=== PATIENT | female | born 1935 | race Caucasian/White ===

== ENCOUNTER 2016-10-29 14:56 | Inpatient (IN) | payer OTHER ==
[~2016-10-29] VITALS: Ht 160 cm; Wt 64.4 kg
[~2016-10-29 14:56] MED LIST: BENTYL 10 MG CA10 MG PO; BENTYL20 MG PO; CYMBALTA60 MG PO; LISINOPRIL10 MG PO; LOPRESSOR 25MG25 MG PO; MECLIZINE HCL25 M1 PO; NEXIUM40 MG PO; PERCOCET 325 MG1 TA2 PO
--- NOTE | 2016-10-29 15:17 | ED DYSPNEA/ASTHMA COMPLAINT ---
History of Present Illness General Chief Complaint: Dyspnea (COPD, CHF, Other) Stated Complaint: DIFF BREATHING, COUGH Source: patient Exam Limitations: no limitations Vital Signs & Intake/Output Vital Signs & Intake/Output Vital Signs Date Time Temp Pulse Resp B/P Pulse O2 O2 Flow FiO2 Ox Delivery Rate 11/01 1600 94 Room Air / 1412 98.8 100 20 122/70 90 Room Air / 0929 170/85 / 0800 Room Air / 0637 97.9 92 20 150/80 03/06 0000 93 Room Air 03/ 2153 98.4 90 20 122/70 93 ED Intake and Output 11/01 0000 10/31 1200 Intake Total 1999 920 Output Total Balance 1999 920 Intake, IV 600 800 Intake, Oral 1400 120 Number 1 Bowel Movements Allergies Coded Allergies: Sulfa (Sulfonamide Antibiotics) (GI UPSET 12/09/15) aspirin (CONTRAINDICATED D/T ULCERS 12/09/15) Reconcile Medications Azithromycin 250 MG TABLET 250 MG PO DAILY INFECTION Duloxetine HCl 20 MG CAPSULE.DR 1 CAP PO BID FIBROMYALGIA (Reported) Losartan Potassium 25 MG TABLET 1 TAB PO DAILY BP (Reported) Meclizine HCl 25 MG TABLET 1 TAB PO TID PRN VERTIGO (Reported) Mirtazapine 7.5 MG TABLET 1 TAB PO QPM SLEEP (Reported) Multivitamin (Multi-Day Vitamins) 1 EACH TABLET 1 TAB PO DAILY SUPPLEMENT ( Reported) Omeprazole 20 MG CAPSULE.DR 40 MG PO DAILY AC ACID REFLUX Polyethylene Glycol 3350 (Miralax) 17 GRAM/DOSE POWDER 17 GM PO DAILY CONSTIPATION Triage Nurses Notes Reviewed? yes Onset: Gradual Duration: day(s): (9) Timing: recent history Severity: moderate Activities at Onset: none Associated Symptoms: cough, fever, loss of appetite, weakness HPI: This is an 81-year-old female with history of hypertension, fibromyalgia, chronic kidney disease who presents to the ER from Dolly Soriano DO's office for chief complaint of fever of 101 in the office. Patient complains of nonproductive cough, weakness and shortness of breath. She status force a course of Levaquin and ended yesterday for pneumonia that was diagnosed by a walk-in clinic last week. She states that she had very diminished oral appetite and intake. Fleeting episodes of central chest pain, none now. Denies any productive cough. She states temperature fluctuates between going high and low. Positive sweats. Past History Travel History Traveled to [place] past 21 day No Medical History Any Pertinent Medical History? 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 No Review of Systems Review of Systems Constitutional: Reports: chills, diaphoresis, fever. EENTM: Reports: no symptoms. Respiratory: Reports: hemoptysis, short of breath. Denies: sputum production. Cardiovascular: Reports: chest pain. Denies: palpitations. GI: Denies: abdominal pain. Genitourinary: Reports: no symptoms. Musculoskeletal: Reports: no symptoms. Skin: Reports: no symptoms. Neurological/Psychological: Reports: no symptoms. Hematologic/Endocrine: Denies: bruising, bleeding, polyuria, polydipsia. Immunologic/Allergic: Denies: splenectomy. All Other Systems: Reviewed and Negative Physical Exam Physical Exam General Appearance: alert, awake, mild distress, thin Head: atraumatic, normal appearance Eyes: Bilateral: normal appearance, PERRL, EOMI. Ears, Nose, Throat: normal pharynx, normal ENT inspection Neck: normal inspection, supple, full range of motion Respiratory: accessory muscle use Cardiovascular: regular rate/rhythm Peripheral Pulses: 2+ radial (R), 2+ radial (L) Gastrointestinal: normal bowel sounds, soft, non-tender Extremities: normal inspection, normal capillary refill, normal range of motion, no edema Neurologic/Psych: no motor/sensory deficits, awake, alert, oriented x 3 Skin: intact, normal color, warm/dry Core Measures ACS in differential dx? No Severe Sepsis Present: No Septic Shock Present: No Progress Differential Diagnosis: pneumonia, FAILURE OF OUTPATIENT ORAL ANTIBIOTIC TREATMENT, RAPHAEL, ELECTROLYTE DISTURBANCE, DEHYDRATION Plan of Care: Orders Procedure Date/time Status Change service to 11/01 0756 Active Discharge Patient 11/01 UNK Active Laboratory Tests 11/01/16 0645: Anion Gap 8, Estimated GFR 53 L, BUN/Creatinine Ratio 16.0, Magnesium 1.7, CBC w Diff NO MAN DIFF REQ, RBC 3.62 L, MCV 92.3, MCH 30.2, RDW 13.6, MPV 7.3 L, Gran % 67.1, Lymphocytes % 21.0, Monocytes % 9.7 H, Eosinophils % 1.3, Basophils % 0.9, Absolute Granulocytes 5.1, Absolute Lymphocytes 1.6, Absolute Monocytes 0.7 H, Absolute Eosinophils 0.1, Absolute Basophils 0.1, PUBS MCHC 32.7 L Diagnostic Imaging: Viewed by Me: Radiology Read. Discussed w/RAD: Radiology Read. CXR Impression: PATIENT: VALDO CHAMBERLAIN PRESENT AGE : 81 PATIENT ACCOUNT NO: [id number] : 36 LOCATION: [facility] ORDERING PHYSICIAN: KATI BHATIA MD SERVICE DATE: 10/29/16 EXAM TYPE: RAD - XRY -PORTABLE CHEST XRAY EXAMINATION: XR PORTABLE CHEST CLINICAL INFORMATION: Cough, fever COMPARISON: CT 03/09/2016 TECHNIQUE: Portable AP view of the chest was obtained. FINDINGS: Lung volumes are symmetric. There are mild streaky bibasilar opacities. The remainder of the lungs are clear. No evidence of pneumothorax, significant pleural effusion, or pulmonary edema. The cardiomediastinal contour is unremarkable. No acute osseous findings are seen. IMPRESSION: Mild streaky bibasilar opacities suggesting atelectasis; a component of superimposed consolidation is difficult to entirely exclude in the proper clinical setting. DICTATED BY: CALEB BERNARDO MD DATE/TIME DICTATED:10/29/161555 VIDEO PHOTOGRAPHER:VANGIE DATE/TIME TRANSCRIBED:10/29/161555 CONFIDENTIAL, DO NOT COPY WITHOUT APPROPRIATE AUTHORIZATION. <Electronically signed in Other Vendor System> SIGNED BY: CALEB BERNARDO MD 10/29/16 1602 Initial ED EKG: SINUS TACHY @111 Rhythm Strip: sinus tachycardia Departure Departure Time of Disposition: 164 Disposition: STILL A PATIENT Condition: Stable Clinical Impression Primary Impression: Pneumonia Secondary Impressions: Hypercalcemia Referrals: DOLLY SORIANO DO (PCP/Family) Departure Forms: Customer Survey General Discharge Information Prescriptions: Current Visit Scripts Omeprazole 40 MG PO DAILY AC #60 CAP Polyethylene Glycol 3350 (Miralax) 17 GM PO DAILY #30 POW Azithromycin 250 MG PO DAILY #1 TAB Admission Note Spoke With: ROB FERREIRA MD Documentation of Exam: Documentation of any treatments & extenuating circumstances including Concerns Regarding Discharge (functional status, medication knowledge or non-compliance, living conditions, etc.) that warrant an admission rather than observation: [IV ABX, IV FLUIDS, TRC/NEBS, MONITOR I/O, MONITOR ELECTROLYTES, F/U CULTURES, REPEAT CALCIUM] Critical Care Note Critical Care Note Critical Care Time: non-applicable
--- NOTE | 2016-10-29 15:23 | NUR ---
81 Y/O FEMALE SENT FROM DR SORIANO'S OFFICE FOR EVAL OF WORSENING PNEUMONIA. PT STATES SHE WAS ON ANTIBIOTICS FOR 5 DAYS, "I FEEL NO BETTER - MAYBE WORSE". PT REPORTS COUGH (UNABLE TO BRING UP PHLEGM), FEVERS, AND DECREASED APPETITE/PO INTAKE. PT STATES SHE HAD A BREATHING TX AT DOCTORS OFFICE BUT DOESNT THINK IT HELPED. SAT 93% RA. EKG COMPLETE. AFEBRILE.
--- NOTE | 2016-10-29 15:27 | NUR ---
IV EST. SRIRAM AT BEDSIDE FOR EVAL. PT PLACED ON 2L NASAL CANNULA AT THIS TIME, RA SATS 90%. SAY UP TO 94% ON 2L NC
[2016-10-29 15:42] LABS: ABSOLUTE BASOPHIL COUNT 0.1 /CUMM (0.0-0.2); ABSOLUTE EOSINOPHIL COUNT 0.1 /CUMM (0.0-0.7); ABSOLUTE GRANULOCYTE CT 7.8 /CUMM (1.4-6.5); BASOPHIL % 1.1 % (0.0-2.0); EOSINOPHIL % 1.1 % (0-5); HEMATOCRIT 37.5 % (37-47); MEAN CORPUSCULAR HGB 29.8 PG (27.0-31.0); MEAN CORPUSCULAR HGB CONC 32.5 G/DL (33.0-37.0); MEAN CORPUSCULAR VOLUME 91.6 FL (81.0-99.0); PLATELET COUNT 383 /CUMM (130-400); RBC DISTRIBUTION WIDTH 13.4 % (11.5-14.5); RED BLOOD CELL CT 4.09 /CUMM (4.20-5.40)
--- NOTE | 2016-10-29 15:55 | NUR ---
NORMSAL SALINE INFUSING AT 500ML/HR AT THIS TIME
--- NOTE | 2016-10-29 16:02 | RADIOLOGY REPORT ---
EXAMINATION: XR PORTABLE CHEST CLINICAL INFORMATION: Cough, fever COMPARISON: CT 03/09/2016 TECHNIQUE: Portable AP view of the chest was obtained. FINDINGS: Lung volumes are symmetric. There are mild streaky bibasilar opacities. The remainder of the lungs are clear. No evidence of pneumothorax, significant pleural effusion, or pulmonary edema. The cardiomediastinal contour is unremarkable. No acute osseous findings are seen. IMPRESSION: Mild streaky bibasilar opacities suggesting atelectasis; a component of superimposed consolidation is difficult to entirely exclude in the proper clinical setting.
--- NOTE | 2016-10-29 16:47 | NUR ---
PT MEDICATED WITH ROCEPHIN AND ZITHROMAX PER ORDER AT THIS TIME. HEART HEALTHY DINNER TRAY ORDERED FOR PT PER MD ITS OK.
--- NOTE | 2016-10-29 16:56 | NUR ---
PT MEDICATED WITH 40MEQ POTASSIUM PER ORDER AT THIS TIME.
--- NOTE | 2016-10-29 17:10 | NUR ---
PT C/O NAUSEA AT THIS TIME. AWARE.
--- NOTE | 2016-10-29 17:23 | NUR ---
IV REGLAN INFUSING PER ORDER AT THIS TIME.
--- NOTE | 2016-10-29 17:51 | NUR ---
HOUSE STAFF IN FOR EVAL
--- NOTE | 2016-10-29 18:33 | NUR ---
Emergency Dept [facility] Admit Note: To be admitted to [facility] by DR CARRANZA with PNEUMONIA as the diagnosis, to [facility] location. Nursing Early Years Teacher and admitting notified 10/29/16 at 1755 PT WILL GO TO ROOM [id number]
--- NOTE | 2016-10-29 18:58 | NUR ---
REPORT GIVEN TO FLOOR, DISTRIBTUION CALLED.
[2016-10-29] MEDS ORDERED: DEXILANT60 M1 PO (19:06)
[2016-10-29] MEDS ORDERED: LOSARTAN POTASS25 M1 PO (19:07)
[2016-10-29] MEDS ORDERED: MECLIZINE HCL25 MG PO (19:07)
[2016-10-29] MEDS ORDERED: DULOXETINE HCL20 MG PO (19:07)
[2016-10-29] MEDS ORDERED: MIRTAZAPINE7.5 M1 PO (19:08)
[2016-10-29] MEDS ORDERED: MULTI-DAY VITA1 EACH PO (19:09)
--- NOTE | 2016-10-29 19:25 | History & Physical ---
See Addendum General Information and HPI MD Statement: I have seen and personally examined VALDO QUIJANO and documented this H&P. The patient is a 81 year old F who presented with a patient stated chief complaint of [pneumonia that didn't respond to outpatient therapy]. Source of Information: patient, old records Exam Limitations: no limitations History of Present Illness: Ms. Quijano is a 81 year old female with chief complaint of cough, shortness of breath, fever. She has past medical history significant for hypertension, fibromyalgia, chronic kidney disease, multiple pulmonary nodules, bronchiectasis , GERD, large hiatal hernia refractory to surgical repair. Patient presented to ED with history of nonproductive cough, shortness of breath , fever at home Tmax 99, chills, night sweats and weakness that started on last 10/21/16, patient visited a walk-in clinic and was prescribed Levaquin, she used Levaquin for 5 days last dose was yesterday but didn't notice any change in her symptoms, patient visited her PCP Dr. Dolly Soriano and had a temperature of 101 and was sent to ED for evaluation. Patient has history of sick contact with her grandson, she visited her son in [place] last week and her grandson had "very bad cold", came to home on Tuesday and started to have her symptoms the next day. She didn't have flu vaccine this season and wasn't tested for flu when she was in urgent care last week. Her review of system significant for headache that was worked up but never had a definitive cause, but if agent started 2 weeks ago minimal, palpitation on and off, chest heaviness but denied chest pain, heartburn, chronic constipation. The patient is following with Dr. Alas and Dr. Swenson for multiple pulmonary nodules with annual CT, her last CT scan was 2015, she had an appointment with Dr. Alas yesterday but wasn't able to come because of her sickness. Patient has no history of smoking, no alcohol consumption, family history significant for heart problems, no history of cancer. She didn't take any of her medication today because she felt very weak. Allergies/Medications Allergies: Coded Allergies: Sulfa (Sulfonamide Antibiotics) (GI UPSET 12/09/15) aspirin (CONTRAINDICATED D/T ULCERS 12/09/15) Home Med list Dexlansoprazole (Dexilant) (Unknown Strength) BP (Unknown Dose) PO DAILY GI (Reported) Duloxetine HCl 20 MG CAPSULE. 1 CAP PO BID FIBROMYALGIA (Reported) Losartan Potassium 25 MG TABLET 1 TAB PO DAILY BP (Reported) Meclizine HCl 25 MG TABLET 1 TAB PO TID PRN VERTIGO (Reported) Mirtazapine 7.5 MG TABLET 1 TAB PO QPM SLEEP (Reported) Multivitamin (Multi-Day Vitamins) 1 EACH TABLET 1 TAB PO DAILY SUPPLEMENT ( Reported) Past History Travel History Traveled to [place] past 21 day No Medical History Neurological: vertigo, headache EENT: [place] Cardiovascular: hypertension Respiratory: BRONCHIECTASIS Gastrointestinal: GERD Renal: STAGE III KIDNEY DISEASE Musculoskeletal: CERVICAL SPONDLYOSIS KNEE PAIN, FIBROMYALGIA Psychiatric: ANXIETY/DEPRESSION Cancer(s): PULMONARY NODULES 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 Home Who Do You Live With? 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 Exam & Diagnostic Data Last 24 Hrs of Vital Signs/I&O Vital Signs Date Time Temp Pulse Resp B/P Pulse O2 O2 Flow FiO2 Ox Delivery Rate 10/29 2029 98.2 96 16 22/70 96 Nasal 2.0L Cannula 10/29 2018 Nasal 2.0L Cannula 10/29 1929 98.4 94 18 143/75 100 Nasal 2.0L Cannula 10/29 1856 96 Nasal 2.0L Cannula 10/29 1821 96.4 102 18 146/80 96 Nasal 2.0L Cannula 10/29 1610 90 Room Air 10/29 1520 96.3 110 18 188/86 93 Room Air Intake & Output 10/29 1600 10/29 0800 10/29 0000 Intake Total Output Total Balance Patient 64.41 kg Weight Physical Exam General Appearance Alert, Oriented X3, Cooperative, No Acute Distress Skin No Rashes, No Breakdown, No Significant Lesion HEENT Atraumatic, PERRLA, EOMI, Dry mucous membrane Neck Supple, No JVD Cardiovascular Regular Rate, Normal S1, Normal S2, No Murmurs, positive bowel sounds Lungs Clear to Auscultation, decrease air entery Abdomen Normal Bowel Sounds, Soft, No Tenderness Neurological Normal Speech, Strength at 5/5 X4 Ext, Normal Tone, Sensation Intact, Cranial Nerves 3-12 NL, Reflexes 2+ Extremities No Clubbing, No Cyanosis, No Edema, Normal Pulses Assessment/Plan Assessment: Ms. Quijano is a 81 year old female with past medical history significant for hypertension, fibromyalgia, chronic kidney disease, multiple pulmonary nodules, bronchiectasis, GERD, large hiatal hernia refractory to surgical repair. She presented to with chief complaint of cough, shortness of breath, fever. On admission Vital signs temperature 98.2, pulse 96, blood pressure 122/70, respirations 16 with saturation 96% on 2L Lab H&H 12.2/37.5, WBC 11, sodium 142, potassium 3.4, BUN/creatinine 27/1.6, calcium 12.1 EKG sinus tachycardia with heart rate 111 Chest x-ray showed Mild streaky bibasilar opacities suggesting atelectasis; a component of superimposed consolidation is difficult to entirely exclude in the proper clinical setting. Problem list #Viral infection with superimposed community-acquired pneumonia #Pulmonary nodules #Hypokalemia #Hypercalcemia #Chronic kidney disease #Viral infection with superimposed community-acquired pneumonia -Patient was started on ceftriaxone 1000 mg IV dailyand azithromycin 250 mg IV daily, continue antibiotic treatment to finsh course of 7-10 days -Patient was given influenza vaccine -Continue nasal cannula, TRC scheduled and as needed -Obtain chest CT -Repeat CBC in the morning -Pulmonary consultation on Tuesday, patient is following with Dr. Alas #Pulmonary nodules -Last CT chest was in February 2016 reveled 1. Tree in bud opacities are again seen throughout both lungs. At the right lung base these are somewhat improved. There is increased prominence in the right upper lobe and left lower lobe. These are suggestive of infectious or inflammatory process. 2. There are additional pulmonary nodules which are either stable or decreased in prominence from the prior study, as detailed above. 3. Long-term stable soft tissue prominence adjacent to the T3 vertebral body on the right. This could represent a schwannoma. -We'll obtain pulmonary consultation #Hypokalemia -Patient was received Tanner in ED -Repeat CMP in the morning #Hypercalcemia -Calcium of 12.1 -History of PTH H in 2011 of 116.4 -History of low TSH less than 0.015 -Her PTH, TSH, T4 and T3, calcium in the morning -Continue hydration with half-normal saline 100 mL/h -Patient is alert oriented 3, reported chronic history of constipation #Chronic kidney disease -BUN/creatinine 27/1.6 -Patient reported seeing film or tape librarian once couple of years ago with no clear recommendations -Obtain nephrology consultation in case of persistent hypercalcemia or deteriorate Kidney function #Continue home medication for hypertension and fibromyalgia CODE STATUS full Diet regular DVT prophylaxis heparin subcutaneous As Ranked By This Provider Problem List: 1. Hypercalcemia 2. Hiatal hernia 3. Dyspnea 4. Vertigo 5. Pneumonia 6. History of repair of hiatal hernia Core Measures/Miscellaneous Acute Coronary Syndrome ACS Diagnosis: No Cerebrovascular Accident CVA/TIA Diagnosis: No Congestive Heart Failure CHF Diagnosis: No Venous Thromboembolism VTE Risk Factors: Age > 40 [facility] prophylaxis d/t: No contraindications No VTE Pharm Prophylaxis d/t: No contraindications VTE Diagnosis: No VTE Type: NONE VTE Confirmed by (Test): NONE Severe Sepsis Severe Sepsis Present: No Septic Shock Septic Shock Present: No Miscellaneous Documentation Attending Case Discussed With: BOONE CARRANZA MD Primary Care Physician: DOLLY SORIANO DO Patient sees these Specialists NONE Level of Patient Care: General Medicine
--- NOTE | 2016-10-29 19:53 | NUR ---
TRANSPORT HERE FOR PT
[2016-10-29 20:30] VITALS: BP 122/70; BP 22/70
--- NOTE | 2016-10-29 21:35 | NUR ---
PT UP TO FLOOR AT 2009. PT A/O X3, PT ON 2L NC. VSS, AFEBRILE. PT DENIES PAIN. ORIENTED TO ROOM AND CALL LIGHT SYSTEM. AMBULATED TO TOILET W STEADY GAIT, NO HX OF FALLS PER PT . WILL MONITOR
[2016-10-29 22:29] VITALS: BP 132/70
--- NOTE | 2016-10-29 23:27 | CT SCAN REPORT ---
EXAMINATION: CT CHEST WITHOUT CONTRAST CLINICAL INFORMATION: Shortness of breath. COMPARISON: CT of chest 03/09/2016. TECHNIQUE: Multidetector volumetric CT imaging of the chest was done. Axial MIP volume rendering provided. Sagittal and coronal reformatted images were obtained. DLP: 205.47 mGy-cm FINDINGS: LUNGS: There is scattered diffuse groundglass and reticular opacities in both lungs that are new since prior exam. These are nonspecific but would suggest an inflammatory or infectious etiology. There are multiple small nodules as well . The nodules though are similar to prior CAT scan of 02/08/2016. There is scarring and bronchiectasis at the right middle lobe and the medial lingula which is slightly worse than the prior exam of 03/09/2016. Linear scarring calcification of the posterior right costophrenic angle is chronic. MEDIASTINUM: Prominent ascending thoracic aorta measuring 4.1 cm transverse at the level of the pulmonary artery. This is unchanged since prior CAT scan. The aorta at the level of the diaphragm measures 2.3 cm. There is vascular calcifications of aorta. There are scattered subcentimeter lymph nodes in the mediastinum but no bulky lymphadenopathy. PLEURA: There is no pleural effusion. No pleural mass or thickening. AXILLA: No lymphadenopathy. UPPER ABDOMEN: Hiatal hernia. Surgical sutures at the GE junction. OSSEOUS STRUCTURES: Hemangioma of T3 vertebrae. Chronic stable soft tissue prominence to the right of the T3 vertebrae which may represent schwannoma. IMPRESSION: 1. Diffuse groundglass opacities and reticular opacities in both lungs that are new since prior exam. Would suspect nonspecific infectious or inflammatory etiology. 2. Stable small nodules in the lungs. 3. Stable soft tissue density adjacent to T3 vertebrae suspicious for schwannoma. Hemangioma of the T3 vertebrae stable.
--- NOTE | 2016-10-30 01:30 | PN- Att Addend ---
Attending Addendum Attending Brief Note Discuss with patient, resident, record label intern, add addendum: CC: Cough SOB PMH: HTN, CK-MB, multiple pulmonary nodule, hiatus hernia, cervical stenosis, vertigo, depression, Patient has been having cough, shortness of breath since last 1 week, feeling weak and lethargic, associated with night sweats, mild chest heaviness, body aches. Patient went to urgent care where she received Levaquin, she finished it yesterday, without much relief. So she went to PCP office for evaluation. Patient was sent to the ER from PCP office for fever of 101 in the office. She also endorses diminished oral appetite and intake, night sweats, maximum fever at home was 99. Her grandson was sick with cold, did not take flu vaccine this year. Vitals: Afebrile, tachycardic at presentation at 110, decreased to 91 on IV hydration, R, BP, O2 saturation at in acceptable range. On examination: thin built white female with no acute distress. AAO 3, no focal neurological deficit , neck supple, no JVD, no lymphadenopathy, mucosa dry, no accessory muscles of respiration in use. RS: Decreased air entry bilaterally, no crackles heard. CVS: S1-S2, RRR. Abdomen: Soft, NT, NT, bowel sounds present. No pedal edema, peripheral pulses perfusion normal. Labs: WBC 11.0, granulocytes 71%, no bands, potassium 3.4, creatinine 1.6, BUN 24, calcium 12.1, LFT within normal range. CXR: Mild streaky bibasilar opacities suggesting atelectasis; a component of superimposed consolidation is difficult to entirely exclude in the proper clinical setting. CT chest without contrast : 1. Diffuse groundglass opacities and reticular opacities in both lungs that are new since prior exam. Would suspect nonspecific infectious or inflammatory etiology. 2. Stable small nodules in the lungs. 3. Stable soft tissue density adjacent to T3 vertebrae suspicious for schwannoma. Hemangioma of the T3 vertebrae stable. A and P #1 cough and shortness of breath since one week: Documented fever at PCP office but currently a febrile since arrival in the ER, patient has subjective fever at home but not high-grade. Complains of night sweats, decreased appetite, lethargy. She has sick contact, chest x-ray does not show any typical or atypical infiltrate for pneumonia. Given her previous history of multiple pulmonary nodules, tree and bud opacities CT is in her previous CT scan, repeat CT chest was obtained. Which showed diffuse groundglass opacities and reticular pattern which is new since prior examination 6 months back. With the recent exposure and recent symptoms will treat this as a typical pneumonia, community- acquired. With ceftriaxone and azithromycin, obtain flu swab, sputum cultures, blood culture, urine Legionella. #2 acute and chronic renal insufficiency: Patient's previous creatinine was in the range of 1.2, elevated to 1.6, probably secondary to infection or volume contraction, continue gentle hydration. #3 hypocalcemia: Unclear etiology, patient's calcium is 12.1 previous calcium was 10.3, in February 2016 minimally elevated at that time. Uncertain whether secondary to volume contraction, patient admits taking OTC meds for GERD. Continue gentle hydration, obtain PTH, 25-hydroxy vitamin D. Repeat BMP in a.m. #4 patient's TSH was less than 0.15 within normal T3 and T4, elevated PTH to 116 in past. Will repeat TSH with reflex T3 and T4. And vitamin D as mentioned above. #5 continue rest of her home medications, adequate pain control, DVT prophylaxis with heparin.
--- NOTE | 2016-10-30 01:30 | Admission Certification ---
Admission Certification Certification Statement - As attending physician, I certify that at the time of - admission, based on clinical presentation, severity of - symptoms, need for further diagnostic testing and - therapeutic interventions, and risk of adverse outcomes - without in-hospital treatment, in my clinical assessment, - this patient requires an acute hospital stay for a minimum - of two nights or longer. I have also considered psychsocial - factors such as support system, advanced age, financial - issues, cognitive issues, and failed out-patient treatments, - past re-admission history, safety of patient, and lack of - compliance as applicable. Specific rationale supporting this admission is: Pneumonia, hypercalcemia, acute and chronic kidney injury.
[2016-10-30 07:01] VITALS: BP 150/90
--- NOTE | 2016-10-30 08:16 | PN- Housestaff ---
See Addendum Subjective Follow-up For: #Viral infection with superimposed community-acquired pneumonia #Pulmonary nodules #Hypercalcemia #Chronic kidney disease Subjective: Patient was seen and examined this morning, She is alert oriented 3. She continued to have dry cough, denied fever or chills. She reported feeling weak and lightheaded at times. Patient reported constipation and mild abdominal pain. Vital signs are stable. Review of Systems Constitutional: Reports: see HPI. Objective Last 24 Hrs of Vital Signs/I&O Vital Signs Date Time Temp Pulse Resp B/P Pulse O2 O2 Flow FiO2 Ox Delivery Rate 10/30 1407 97.8 94 20 148/84 91 Room Air 10/30 0923 88 148/90 10/30 0800 92 Room Air 10/30 0701 97.1 93 20 150/90 91 Room Air 10/30 0000 94 Nasal 2.0L Cannula 10/29 2231 91 128/70 10/29 2229 98.3 97 20 132/70 94 Nasal 2.0L Cannula 10/29 2030 98.2 96 16 122/70 96 Nasal 2.0L Cannula 10/29 2019 Nasal 2.0L Cannula 10/29 1929 98.4 94 18 143/75 100 Nasal 2.0L Cannula 10/29 1856 96 Nasal 2.0L Cannula 10/29 1821 96.4 102 18 146/80 96 Nasal 2.0L Cannula Intake & Output 10/30 1600 / 0800 03/04 0000 Intake Total 0850 858 5034 Output Total Balance 7272 988 6827 Intake, IV 500 800 950 Intake, Oral 800 0 500 Number 0 Bowel Movements Patient 64.41 kg Weight Physical Exam General Appearance: Alert, Oriented X3, Cooperative, No Acute Distress Skin: No Rashes, No Breakdown, No Significant Lesion HEENT: Atraumatic, PERRLA, EOMI, Mucous Membr. moist/pink Cardiovascular: Regular Rate, Normal S1, Normal S2, No Murmurs Lungs: Clear to Auscultation, decrease air entery bilateral Abdomen: Normal Bowel Sounds, Soft, No Tenderness Neurological: Normal Gait, Normal Speech, Strength at 5/5 X4 Ext, Normal Tone, Sensation Intact, Cranial Nerves 3-12 NL, Reflexes 2+ Extremities: No Clubbing, No Cyanosis, No Edema, Normal Pulses Assessment/Plan Assessment: Ms. Quijano is a 81 year old female with past medical history significant for hypertension, fibromyalgia, chronic kidney disease, multiple pulmonary nodules, bronchiectasis, GERD, large hiatal hernia refractory to surgical repair. She presented to with chief complaint of cough, shortness of breath, fever. EKG sinus tachycardia with heart rate 111 Chest x-ray showed Mild streaky bibasilar opacities suggesting atelectasis; a component of superimposed consolidation is difficult to entirely exclude in the proper clinical setting. Problem list #Viral infection with superimposed community-acquired pneumonia #Pulmonary nodules #Hypokalemia #Hypercalcemia #Chronic kidney disease #Viral infection with superimposed community-acquired pneumonia -Continue ceftriaxone 1000 mg IV dailyand azithromycin 250 mg IV daily -Patient was given influenza vaccine on admission -Follow up legionella urinary antigen -Chest CT IMPRESSION: 1. Diffuse groundglass opacities and reticular opacities in both lungs that are new since prior exam. Would suspect nonspecific infectious or inflammatory etiology. 2. Stable small nodules in the lungs. 3. Stable soft tissue density adjacent to T3 vertebrae suspicious for schwannoma. Hemangioma of the T3 vertebrae stable. -Patient has history of pulmonary nodules -Pulmonary consultation on Tuesday, patient is following with Dr. Alas #Hypokalemia -Resolved #Hypercalcemia -Calcium of 10.7< 12.1 -Patient reported taking large amount of patient Maty lidatzer -PT H 13.8 -TSH 1.73, T4 1 0.5 -Vitamin D 57.5 -Continue hydration with half-normal saline 100 mL/h -Patient is alert oriented 3, reported chronic history of constipation #Chronic kidney disease -BUN/creatinine 28/1.4 -Patient reported seeing folding machine tender once couple of years ago with no clear recommendations #Continue home medication for hypertension and fibromyalgia CODE STATUS full Diet regular DVT prophylaxis heparin subcutaneous Problem List: 1. Pneumonia 2. Hiatal hernia 3. Hypercalcemia 4. Chronic kidney disease Pain Ratin Pain Location: None Pain Goal: Pain 4 or less Pain Plan: Mild pain pathway Tomorrow's Labs & Rationales: CMP, Ca
[2016-10-30 08:53] LABS: ABSOLUTE BASOPHIL COUNT 0.1 /CUMM (0.0-0.2); ABSOLUTE EOSINOPHIL COUNT 0.1 /CUMM (0.0-0.7); ABSOLUTE GRANULOCYTE CT 5.7 /CUMM (1.4-6.5); ABSOLUTE LYMPH COUNT 1.8 /CUMM (1.2-3.4); ABSOLUTE MONOCYTE COUNT 0.9 /CUMM (0.10-0.60); BASOPHIL % 0.8 % (0.0-2.0); EOSINOPHIL % 1.6 % (0-5); GRANULOCYTE % 66.9 % (42.2-75.2); MEAN CORPUSCULAR HGB 30.5 PG (27.0-31.0); MEAN CORPUSCULAR HGB CONC 33.2 G/DL (33.0-37.0); MEAN CORPUSCULAR VOLUME 91.9 FL (81.0-99.0); MEAN PLATELET VOLUME 7.5 FL (7.4-10.4); PLATELET COUNT 332 /CUMM (130-400); RBC DISTRIBUTION WIDTH 13.5 % (11.5-14.5); RED BLOOD CELL CT 3.47 /CUMM (4.20-5.40); WHITE BLOOD CELL COUNT 8.5 /CUMM (4.8-10.8)
[2016-10-30 13:01] LABS: HEMATOCRIT 31.9 % (37-47)
[2016-10-30 14:07] VITALS: BP 148/84
[2016-10-30 22:09] VITALS: BP 140/80
[2016-10-31 05:51] VITALS: BP 150/80
--- NOTE | 2016-10-31 09:43 | PN- Housestaff ---
See Addendum Subjective Follow-up For: hypercalcemia cap hypokalemia ckd Subjective: Saw pt at bedside thsi AM. She stated that she felt better today. She denies any SOB or CP. No overnight events or complaints. Review of Systems Constitutional: Reports: weakness. Denies: chills, diaphoresis, fever, malaise. EENTM: Reports: no symptoms. Cardiovascular: Denies: chest pain, palpitations. Respiratory: Reports: cough. Denies: short of breath, sputum production. Gastrointestinal: Denies: bloating, constipation, diarrhea. Genitourinary: Reports: no symptoms. Musculoskeletal: Denies: joint pain, muscle pain, muscle stiffness. Skin: Reports: see HPI. Objective Last 24 Hrs of Vital Signs/I&O Vital Signs Date Time Temp Pulse Resp B/P Pulse O2 O2 Flow FiO2 Ox Delivery Rate 10/31 0551 98.0 91 20 150/80 94 Room Air / 2209 97.6 94 20 140/80 92 / 1600 Room Air 10/30 1407 97.8 94 20 148/84 91 Room Air Intake & Output 10/31 1600 10/31 0800 03/ 0000 Intake Total 920 1600 Output Total Balance 920 1600 Intake, IV 800 800 Intake, Oral 120 800 Number 1 Bowel Movements Physical Exam General Appearance: Alert, Oriented X3, Cooperative, No Acute Distress Skin: No Significant Lesion HEENT: Atraumatic, PERRLA, EOMI Neck: Supple Cardiovascular: Regular Rate, Normal S1, Normal S2, No Murmurs Lungs: Clear to Auscultation Abdomen: Soft, No Tenderness Neurological: Normal Speech Extremities: Normal Pulses, No Tenderness/Swelling Current Medications: Current Medications Sig/Lexis Start time Last Medication Dose Route Stop Time Status Admin Acetaminophen 650 MG Q6P PRN 10/29 2215 AC PO Acetaminophen 1,000 MG Q6P PRN 10/29 2215 AC IV Azithromycin 500 MG DAILY 10/30 1000 AC 10/30 Dextrose/Water 250 ML IV 0924 Ceftriaxone Sodium 1,000 MG DAILY 10/30 1000 AC 10/30 IV 0923 Docusate Sodium 100 MG DAILY NEEDED PRN 10/30 1630 AC PO Duloxetine HCl 20 MG BID 10/29 2200 AC 10/30 PO 2203 Heparin Sodium 5,000 UNIT Q8 10/29 2200 AC (Porcine) SC Losartan Potassium 25 MG DAILY 10/29 194 AC 10/30 PO 0923 Metoclopramide HCl 5 MG DAILY 10/31 1000 AC PO Morphine Sulfate 2 MG Q6P PRN 10/29 2215 AC IV Omeprazole 20 MG DAILY AC 10/30 1021 AC 10/31 PO 0449 Ondansetron HCl 4 MG ONCE ONE 10/30 1015 DC 10/30 IV 10/30 1016 1013 Polyethylene Glycol 17 GM DAILY 10/30 1021 AC 10/30 PO 1406 Senna 187 MG AT BEDTIME PRN 10/30 1630 AC PO Sodium Chloride 1,000 ML Q10H 10/29 194 AC 10/31 IV 0739 Last 24 Hrs of Lab/Eugenio Results Last 24 Hrs of Labs/Mics: Laboratory Tests 10/31/16 0630: Anion Gap 5, Estimated GFR 48 L, BUN/Creatinine Ratio 17.3, Calcium 9.3, Phosphorus 3.1 Microbiology 10/30 1450 URINE ROUT: Legionella Antigen - COMP 10/30 1415 NASOPHARYN: Influenza Virus A & B Rapid Smear - COMP Assessment/Plan Assessment: Ms. Quijano is a 81 year old female with past medical history significant for hypertension, fibromyalgia, chronic kidney disease, multiple pulmonary nodules, bronchiectasis, GERD, large hiatal hernia refractory to surgical repair. She presented to with chief complaint of cough, shortness of breath, fever. EKG sinus tachycardia with heart rate 111 Chest x-ray showed Mild streaky bibasilar opacities suggesting atelectasis; a component of superimposed consolidation is difficult to entirely exclude in the proper clinical setting. Problem list #Viral infection with superimposed community-acquired pneumonia #Pulmonary nodules #Hypokalemia #Hypercalcemia #Chronic kidney disease #Viral infection with superimposed community-acquired pneumonia -Continue ceftriaxone 1000 mg IV dailyand azithromycin 250 mg IV daily -Patient was given influenza vaccine on admission -Follow up legionella urinary antigen -Chest CT IMPRESSION: 1. Diffuse groundglass opacities and reticular opacities in both lungs that are new since prior exam. Would suspect nonspecific infectious or inflammatory etiology. 2. Stable small nodules in the lungs. 3. Stable soft tissue density adjacent to T3 vertebrae suspicious for schwannoma. Hemangioma of the T3 vertebrae stable. -Patient has history of pulmonary nodules -Pulmonary consultation on Tuesday, patient is following with Dr. Alas #Hypokalemia -Resolved #Hypercalcemia -Ca today at 9.3 -Patient reported taking large amount of Maty seltzer -PT H 13.8 -TSH 1.73, T4 1 0.5 -Vitamin D 57.5 -Continue hydration with half-normal saline 100 mL/h -Patient is alert oriented 3, reported chronic history of constipation #Chronic kidney disease -BUN 17; creatinine improving -Patient reported seeing assistant food service manager once couple of years ago with no clear recommendations #Continue home medication for hypertension and fibromyalgia CODE STATUS full Diet regular DVT prophylaxis heparin subcutaneous Problem List: 1. Chronic kidney disease 2. Hypercalcemia 3. Hiatal hernia 4. Dyspnea Pain Ratin Pain Location: none Pain Goal: Remain pain free Pain Plan: current reg Tomorrow's Labs & Rationales: cbc bep DVT/Prophylaxis: pharmacological
[2016-10-31 14:06] VITALS: BP 150/90
[2016-10-31 21:53] VITALS: BP 122/70
[2016-11-01 06:37] VITALS: BP 150/80
--- NOTE | 2016-11-01 07:09 | PN- Housestaff ---
FLAVIO HUNTER,[facility] 11/01/16 0709: Subjective Follow-up For: #Viral infection with superimposed community-acquired pneumonia #Pulmonary nodules #Hypercalcemia #Chronic kidney disease Subjective: Patient was seen and examined this morning. Vital signs are stable, remained afebrile, no acute distress, no overnight events reported by the nurse of the patient. Patient reported that her weakness is better today, she continued to have dry cough, denied fever or chills. Bowel movement today normal in consistency. No chest pain or abdominal pain. Review of Systems Constitutional: Reports: see HPI. Objective Last 24 Hrs of Vital Signs/I&O Vital Signs Date Time Temp Pulse Resp B/P Pulse O2 O2 Flow FiO2 Ox Delivery Rate 11/01 1412 98.8 100 20 122/70 90 Room Air 11/01 0929 170/85 11/01 0800 Room Air 11/01 0637 97.9 92 20 150/80 03/ 0000 93 Room Air 10/31 2153 98.4 90 20 122/70 93 Intake & Output 11/01 1600 11/01 0800 11/01 0000 Intake Total 300 50 700 Output Total Balance 300 50 700 Intake, IV 0 Intake, Oral 300 50 700 Number 1 Bowel Movements Physical Exam General Appearance: Alert, Oriented X3, Cooperative, No Acute Distress Skin: No Rashes, No Breakdown, No Significant Lesion HEENT: Atraumatic, PERRLA, EOMI, Mucous Membr. moist/pink Neck: Supple, No JVD Cardiovascular: Regular Rate, Normal S1, Normal S2, No Murmurs Lungs: Clear to Auscultation, Normal Air Movement Abdomen: Normal Bowel Sounds, Soft, No Tenderness Neurological: Normal Gait, Normal Speech, Strength at 5/5 X4 Ext, Normal Tone, Sensation Intact, Cranial Nerves 3-12 NL, Reflexes 2+ Extremities: No Clubbing, No Cyanosis, No Edema, Normal Pulses Assessment/Plan Assessment: Assessment: Ms. Quijano is a 81 year old female with past medical history significant for hypertension, fibromyalgia, chronic kidney disease, multiple pulmonary nodules, bronchiectasis, GERD, large hiatal hernia refractory to surgical repair. She presented to with chief complaint of cough, shortness of breath, fever. Chest x-ray on admission 10/29 showed Mild streaky bibasilar opacities suggesting atelectasis; a component of superimposed consolidation is difficult to entirely exclude in the proper clinical setting. Problem list #Viral infection with superimposed community-acquired pneumonia #Pulmonary nodules #Hypokalemia #Hypercalcemia #Chronic kidney disease #Viral infection with superimposed community-acquired pneumonia -Discontinue ceftriaxone 1000 mg IV daily and azithromycin 250 mg IV daily -Start azithromycin 250 mg by mouth daily -influenza A and B test is negative -Legionella urinary antigen is negative -Chest CT IMPRESSION: 1. Diffuse groundglass opacities and reticular opacities in both lungs that are new since prior exam. Would suspect nonspecific infectious or inflammatory etiology. 2. Stable small nodules in the lungs. 3. Stable soft tissue density adjacent to T3 vertebrae suspicious for schwannoma. Hemangioma of the T3 vertebrae stable. -Patient has history of pulmonary nodules -Patient remained afebrile, no WBC #Hypokalemia -Resolved #Hypercalcemia -Calcium of 9.3 <10.7< 12.1 -Patient reported taking large amount of patient Maty seltzer -PT H 13.8 -TSH 1.73, T4 1 0.5 -Vitamin D 57.5 -Discontinue IV fluid -Patient is alert oriented 3, reported chronic history of constipation #GERD with large hiatal hernia -Increase omeprazole to 40 mg by mouth daily #Chronic kidney disease -BUN/creatinine 16/1 <19/1.1 <28/1.4 -Patient reported seeing gas derrick operator once couple of years ago with no clear recommendations #Hypertension -Continue losartan 25 mg by mouth daily #Fibromyalgia -Continue Cymbalta 20 mg twice a day CODE STATUS full Diet regular DVT prophylaxis heparin subcutaneous Patient is for discharge today Problem List: 1. Pneumonia 2. Hiatal hernia 3. Hypercalcemia 4. Chronic kidney disease Pain Ratin Pain Location: None Pain Goal: Pain 4 or less Pain Plan: Mild pain pathway Tomorrow's Labs & Rationales: None PAMELA KEARNS MD 11/01/16 2230: Attending MD Review Statement Attending Statement Attending MD Statement: examined this patient, discuss w/resident/PA/COLD TYPE ARTIST, agreed w/resident/PA/COLD TYPE ARTIST, reviewed EMR data (avail), discussed with nursing, discussed with case mgmt, amended to note Attending Assessment/Plan: The patient was seen and discussed with house staff. Agree with plan of care as outlined.
[2016-11-01 08:54] LABS: ABSOLUTE BASOPHIL COUNT 0.1 /CUMM (0.0-0.2); ABSOLUTE EOSINOPHIL COUNT 0.1 /CUMM (0.0-0.7); ABSOLUTE GRANULOCYTE CT 5.1 /CUMM (1.4-6.5); ABSOLUTE LYMPH COUNT 1.6 /CUMM (1.2-3.4); ABSOLUTE MONOCYTE COUNT 0.7 /CUMM (0.10-0.60); BASOPHIL % 0.9 % (0.0-2.0); EOSINOPHIL % 1.3 % (0-5); GRANULOCYTE % 67.1 % (42.2-75.2); HEMATOCRIT 33.4 % (37-47); MEAN CORPUSCULAR HGB 30.2 PG (27.0-31.0); MEAN CORPUSCULAR HGB CONC 32.7 G/DL (33.0-37.0); MEAN CORPUSCULAR VOLUME 92.3 FL (81.0-99.0); MEAN PLATELET VOLUME 7.3 FL (7.4-10.4); PLATELET COUNT 328 /CUMM (130-400); RBC DISTRIBUTION WIDTH 13.6 % (11.5-14.5); RED BLOOD CELL CT 3.62 /CUMM (4.20-5.40); WHITE BLOOD CELL COUNT 7.6 /CUMM (4.8-10.8)
[2016-11-01 14:12] VITALS: BP 122/70
--- NOTE | 2016-11-01 15:50 | Discharge Summary ---
Visit Information Visit Dates Admission Date: 10/29/16 Discharge Date: 11/01/69 Hospital Course Course Attending Physician: PAMELA KEARNS MD Primary Care Physician: DOLLY SORIANO DO [facility] Course: Ms. Quijano is a 81 year old female with chief complaint of cough, shortness of breath, fever. She has past medical history significant for hypertension, fibromyalgia, chronic kidney disease, multiple pulmonary nodules, bronchiectasis , GERD, large hiatal hernia refractory to surgical repair. Patient presented to ED on 10/29/16 with history of nonproductive cough, shortness of breath, fever at home Tmax 99, chills, night sweats and weakness that started on last 10/21/16, was treated with Levaquin for 5 days as an outpatient with no significant symptom improvement. Patient visited her PCP Dr. Dolly Soriano and had a temperature of 101 and was sent to ED for evaluation. Patient has history of sick contact with her grandson, she visited her son in [place] last week and her grandson had "very bad cold", came to home on Tuesday and started to have her symptoms the next day. She didn't have flu vaccine this season and wasn't tested for flu when she was in urgent care last week. Her review of system significant for chronic headache that was worked up at [facility] in the past, palpitation on and off, chest heaviness but denied chest pain, heartburn, chronic constipation. The patient is following with Dr. Alas and Dr. Swenson for multiple pulmonary nodules with annual CT, her last CT scan was 2015, she had an appointment with Dr. Alas yesterday but wasn't able to come because of her sickness. Patient has no history of smoking, no alcohol consumption. Patient was admitted to general med floor for the following problems: #Viral infection with superimposed community-acquired pneumonia #Pulmonary nodules #Hypokalemia #Hypercalcemia #Chronic kidney disease On admission Vital signs temperature 98.2, pulse 96, blood pressure 122/70, respirations 16 with saturation 96% on 2L Lab H&H 12.2/37.5, WBC 11, sodium 142, potassium 3.4, BUN/creatinine 27/1.6, calcium 12.1 EKG sinus tachycardia with heart rate 111 Chest x-ray showed Mild streaky bibasilar opacities suggesting atelectasis; a component of superimposed consolidation is difficult to entirely exclude in the proper clinical setting. #Viral infection with superimposed community-acquired pneumonia -Patient received ceftriaxone 1000 mg IV daily and azithromycin 250 mg IV daily, will be discharged on azithromycin 250 mg by mouth daily to finish course of total 5 days -influenza A and B test is negative -Legionella urinary antigen is negative -Blood culture negative so far -Chest CT IMPRESSION: 1. Diffuse groundglass opacities and reticular opacities in both lungs that are new since prior exam. Would suspect nonspecific infectious or inflammatory etiology. 2. Stable small nodules in the lungs. 3. Stable soft tissue density adjacent to T3 vertebrae suspicious for schwannoma. Hemangioma of the T3 vertebrae stable. -Patient has history of pulmonary nodules -Patient remained afebrile, no WBC #Hypokalemia -Resolved #Hypercalcemia -Calcium of 9.3 <10.7< 12.1 -Patient is alert oriented 3, reported chronic history of constipation -Patient reported taking large amount of patient Maty seltzer -PT H 13.8 -TSH 1.73, T4 1 0.5 -Vitamin D 57.5 -Patient received hydration with IV fluid normal saline #GERD with large hiatal hernia -Increase omeprazole to 40 mg by mouth daily #Chronic kidney disease -BUN/creatinine 16/1 <19/1.1 <28/1.4 -Patient reported seeing down filler once couple of years ago with no clear recommendations #Hypertension -Continue losartan 25 mg by mouth daily #Fibromyalgia -Continue Cymbalta 20 mg twice a day CODE STATUS full Diet regular DVT prophylaxis heparin subcutaneous Patient is for discharge to home self health services Allergies: Coded Allergies: Sulfa (Sulfonamide Antibiotics) (GI UPSET 12/09/15) aspirin (CONTRAINDICATED D/T ULCERS 12/09/15) Disposition Summary Disposition Principal Diagnosis: #Community-acquired pneumonia Additional Diagnosis: #Hypercalcemia #Acute on top of chronic kidney disease Discharge Disposition: home or self care Discharge Instructions General Discharge Information Code Status: Full Code Patient's Diet: Regular diet Patient's Activity: As tolerated Follow-Up Instructions/Appts: -Please follow-up with your primary care physician within one week after discharge -Please follow-up with Dr. Alas after discharge Medications at Discharge Discharge Medications: Stop taking the following medications: Dexlansoprazole (Dexilant) (Unknown Strength) BP ORAL DAILY Continue taking these medications: Duloxetine HCl (Duloxetine HCl) 20 MG CAPSULE.DR 1 Capsule ORAL TWICE DAILY Qty = 60 Comments: Last Taken:10/29/16 @ 0932 Time:PER PT Losartan Potassium (Losartan Potassium) 25 MG TABLET 1 Tablet ORAL DAILY Qty = 30 Comments: Last Taken:11/01/16@ 0929 Time:PER PT Meclizine HCl (Meclizine HCl) 25 MG TABLET 1 Tablet ORAL THREE TIMES DAILY as needed for VERTIGO Qty = 90 Comments: PER PT Mirtazapine (Mirtazapine) 7.5 MG TABLET 1 Tablet ORAL Every night Qty = 30 Comments: PER PT Multivitamin (Multi-Day Vitamins) 1 EACH TABLET 1 Tablet ORAL DAILY Comments: PER PT Start taking the following new medications: Omeprazole (Omeprazole) 20 MG CAPSULE.DR 40 Milligram ORAL DAILY BEFORE BREAKFAST Qty = 60 No Refills Polyethylene Glycol 3350 (Miralax) 17 GRAM/DOSE POWDER 17 Gram ORAL DAILY Qty = 30 No Refills Azithromycin (Azithromycin) 250 MG TABLET 250 Milligram ORAL DAILY Qty = 1 No Refills Copies To: JAMIE SORIANO DO, MD, K. MARYA Attending MD Review Statement Documenting Attending: PAMELA KEARNS MD Other Findings: The patient was seen and discussed with house staff. Agree with the plan of care upon discharge.
[2016-11-01] MEDS ORDERED: AZITHROMYCIN250 M1 PO ×2 (15:55→15:59)
[2016-11-01] MEDS ORDERED: OMEPRAZOLE20 M2 PO ×2 (15:55→15:58)
[2016-11-01] MEDS ORDERED: MIRALAX119 GM PO ×2 (15:55→15:59)
--- NOTE | 2016-11-01 15:58 | Patient Discharge Instructions ---
See Addendum Discharge Instructions General Discharge Information Special Instructions: -Please follow-up with your primary care physician within one week after discharge Acute Coronary Syndrome Inclusion Criteria At DC or during hospital stay patient has or had the following: ACS DIAGNOSIS No Discharge Core Measures Meds if any: Prescribed or Continued at Discharge Meds if any: NOT Prescribed or Continued at Discharge Congestive Heart Failure Inclusion Criteria At DC or during hospital stay patient has or had the following: CHF DIAGNOSIS No Discharge Core Measures Meds if any: Prescribed or Continued at Discharge Meds if any: NOT Prescribed or Continued at Discharge Cerebrovascular accident Inclusion Criteria At DC or during hospital stay patient has or had the following: CVA/TIA Diagnosis No Discharge Core Measures Meds if any: Prescribed or Continued at Discharge Meds if any: NOT Prescribed or Continued at Discharge Venous thromboembolism Inclusion Criteria VTE Diagnosis No VTE Type NONE VTE Confirmed by (Test) NONE Discharge Core Measures - Per Current guidelines, there needs to be overlap - treatment for the first 5 days of Warfarin therapy. - If discharged on Warfarin prior to 5 days of - overlap therapy, the patient will need to be - assessed for post discharge needs including - *Post discharge parental anticoagulation - *Warfarin and/or parental anticoagulation education - *Follow up date to check INR post discharge At least 5 days overlap therapy as Inpatient Yes Meds if any: Prescribed or Continued at Discharge Note: Overlap Therapy is Warfarin and Anticoagulant Meds if any: NOT Prescribed or Continued at Discharge
== END 2016-11-01 17:30 | DRG 194 ==
LOC: ENRESERVTM → ENRESERVDT → ERH 14:56 → ERHI 17:05 → 2NA 17:05
PROVIDERS: Emergency Medicine; Student in an Organized Health Care Education/Training Program; ADMIT Internal Medicine
DX: J18.9 Pneumonia, unspecified organism (principal); N17.9 Acute kidney failure, unspecified; E83.52 Hypercalcemia; M79.7 Fibromyalgia; R91.8 Other nonspecific abnormal finding of lung field; K44.9 Diaphragmatic hernia without obstruction or gangrene; I12.9 Hypertensive chronic kidney disease with stage 1 through stage 4 chronic kidney disease, or unspecified chronic kidney disease; N18.3 Chronic kidney disease, stage 3 (moderate); E87.6 Hypokalemia; K21.9 Gastro-esophageal reflux disease without esophagitis
CPT/HCPCS: 2NAP; 36415; 82436; 87040; 87070; 87449; 87804; 87804-59; 90662; 93005; 93010; 96361; 96365; 96375; J0456; J0696; J1644; J2405; J2765; J7040; J7060